=== PATIENT | female | born 1935 | race Caucasian/White ===

== ENCOUNTER → 2016-08-05 | Outpatient (CLI) | payer MEDICARE, BC ==
[~2016-08-05] MED LIST: ATOR80TA PO; CIPR500T3 PO; FOLI-17 PO; INSU100V5 SQ-INSULIN; LETR2.5T PO; LEVO50TA PO; LOSA50TA6 PO; METF500T4 PO; METH2.5T PO; METR500T PO; PRED5TAB25 PO; TERI2.4P SQ
[2016-08-05 13:07] LABS: HEMOGLOBIN 10.6 g/dL (11.7-16.4)
[2016-08-05 13:33] LABS: ASPARTATE AMINO TRANSFERASE 18 U/L (15-37); BLOOD UREA NITROGEN 20 mg/dL (7-18)
== END | disposition home or self-care (01) ==
LOC: CFH 07:47
PROVIDERS: ATTEND Nurse Practitioner
DX: E03.9 Hypothyroidism, unspecified (principal); E11.65 Type 2 diabetes mellitus with hyperglycemia; E55.9 Vitamin D deficiency, unspecified; M06.9 Rheumatoid arthritis, unspecified; R53.83 Other fatigue
CPT/HCPCS: 36415; 80053; 80061; 82306; 83036; 84443; 85025

== ENCOUNTER → 2017-01-11 | Outpatient (CLI) | payer MEDICARE, BC | END | disposition home or self-care (01) | LOC: CVU 11:27 | PROVIDERS: ATTEND Internal Medicine Cardiovascular Disease | DX: R60.0 Localized edema (principal) | CPT/HCPCS: 93306; 93970 ==

== ENCOUNTER 2017-04-22 11:22 | Inpatient (IN) | payer MEDICARE, BC ==
[~2017-04-22] VITALS: Ht 162.6 cm; Wt 85.8 kg
[2017-04-22] MEDS ORDERED: SODIUM CHLORIDE FLUSH 10ML SYR IVF ONE (12:00)
[2017-04-22 12:16] LABS: ASPARTATE AMINO TRANSFERASE 45 U/L (15-37); BLOOD UREA NITROGEN 26 mg/dL (7-18)
[2017-04-22] MEDS ORDERED: METO200T5 PO (12:27)
[2017-04-22] MEDS ORDERED: FURO20TA3 PO (12:27)
[2017-04-22] MEDS ORDERED: AMOX500T PO (12:27)
[2017-04-22 12:58] LABS: HEMATOCRIT 34.9 % (34.6-47.8); HEMOGLOBIN 10.8 g/dL (11.7-16.4); WHITE BLOOD COUNT 8.9 x10^3/uL (3.4-10)
[2017-04-22 13:13] LABS: ANISOCYTOSIS 1+; HYPOCHROMIA 1+; OVALOCYTES 1+; POIKILOCYTOSIS 1+
[2017-04-22] MEDS ORDERED: CEFTRIAXONE PMX 1GM/50ML 50 ML IV ONE (13:30)
[2017-04-22] MEDS ORDERED: SODIUM CHLORIDE 0.9% 1,000ML IVBOLUS ONE (13:30)
[2017-04-22] MEDS ORDERED: SODIUM CHLORIDE FLUSH 10ML SYR IVF PRN (14:30)
[2017-04-22] MEDS ORDERED: CEFTRIAXONE PMX 1GM/50ML 50 ML ONE (14:32)
[2017-04-22 16:27] VITALS: BP 111/72
[2017-04-22] MEDS ORDERED: METHOTREXATE 2.5 MG TABLET PO SCH (17:00)
[2017-04-22] MEDS ORDERED: SODIUM CHLORIDE 0.9% 1,000 ML IV SCH (17:04)
[2017-04-22] MEDS: INSULIN ASPART 100 UNITS/ML, PEN SQ-INSULIN SCH ×2 (17:30→20:36)
[2017-04-22] MEDS ORDERED: DEXTROSE 50%, 50ML SYRINGE IVPush PRN (17:30)
[2017-04-22] MEDS ORDERED: ONDANSETRON 2MG/ML, 2ML IVPush PRN (17:30)
[2017-04-22] MEDS ORDERED: POTASSIUM CHLORIDE 20 MEQ TAB.ER.PRT PO ONE (17:30)
[2017-04-22] MEDS ORDERED: BISACODYL 10 MG SUPP PR PRN (17:30)
[2017-04-22] MEDS ORDERED: POLYETHYLENE GLYCOL 17 GM PACKET PO PRN (17:30)
[2017-04-22] MEDS ORDERED: ACETAMINOPHEN 325 MG TABLET PO PRN (17:30)
[2017-04-22] MEDS ORDERED: PHARMACY MAY ADJ FOR RENAL FX MC PRN (17:30)
[2017-04-22] MEDS ORDERED: GLUCAGON 1 MG IM PRN (17:30)
[2017-04-22] MEDS ORDERED: DEXTROSE 4 GM TAB.CHEW PO PRN (17:30)
[2017-04-22] MEDS ORDERED: ONDANSETRON ODT 4 MG PO PRN (17:30)
[2017-04-22] MEDS: HEPARIN 5,000 UNITS/ML, 1ML SQ SCH (18:35)
[2017-04-22] MEDS: GUAIFENESIN 200 MG TABLET PO SCH ×2 (18:36→20:35)
[2017-04-22 18:50] VITALS: BP 107/61
[2017-04-22] MEDS: SODIUM CHLORIDE FLUSH 10ML SYR IVF SCH (20:35)
[2017-04-22] MEDS: SODIUM CHLORIDE NASAL SPRAY 45ML BOTTLE NAS SCH (21:28)
[2017-04-22] MEDS ORDERED: DIPHENHYDRAMINE 50 MG CAPSULE PO PRN (22:00)
[2017-04-22] MEDS: NYSTATIN/TRIAMCINOLONE CRM 15GM TP SCH (23:10)
[2017-04-23] MEDS: HEPARIN 5,000 UNITS/ML, 1ML SQ SCH ×3 (00:30→16:38)
[2017-04-23 02:43] VITALS: BP 105/58
[2017-04-23] MEDS: LEVOTHYROXINE 50 MCG TABLET PO SCH (05:48)
[2017-04-23] MEDS: GUAIFENESIN 200 MG TABLET PO SCH ×4 (05:48→21:18)
[2017-04-23 06:29] LABS: ASPARTATE AMINO TRANSFERASE 44 U/L (15-37); BLOOD UREA NITROGEN 22 mg/dL (7-18)
[2017-04-23 06:32] LABS: HEMATOCRIT 33.4 % (34.6-47.8); HEMOGLOBIN 10.3 g/dL (11.7-16.4); WHITE BLOOD COUNT 8.3 x10^3/uL (3.4-10)
[2017-04-23 06:59] VITALS: BP 119/65
[2017-04-23] MEDS: INSULIN ASPART 100 UNITS/ML, PEN SQ-INSULIN SCH ×4 (07:00→21:30)
[2017-04-23 07:20] LABS: ANISOCYTOSIS 2+; POIKILOCYTOSIS 1+; STOMATOCYTES 1+
[2017-04-23 07:21] LABS: HYPOCHROMIA 1+
[2017-04-23] MEDS ORDERED: MAGNESIUM SULFATE PMX 4GM/100M 100 ML IV ONE (08:30)
[2017-04-23] MEDS: PREDNISOLONE 5 MG PO SCH (09:00)
[2017-04-23] MEDS: SODIUM CHLORIDE NASAL SPRAY 45ML BOTTLE NAS SCH ×2 (09:00→21:18)
[2017-04-23] MEDS: FOLIC ACID 1 MG TABLET PO SCH (10:00)
[2017-04-23] MEDS: SODIUM CHLORIDE FLUSH 10ML SYR IVF SCH ×2 (10:01→21:18)
[2017-04-23] MEDS: NYSTATIN/TRIAMCINOLONE CRM 15GM TP SCH ×3 (10:01→21:18)
[2017-04-23] MEDS: SENNA/DOCUSATE TABLET PO SCH (10:01)
[2017-04-23 12:49] VITALS: BP 108/68
[2017-04-23 20:12] VITALS: BP 134/81
[2017-04-23] MEDS: ZOLPIDEM 5MG TABLET PO PRN (21:18)
[2017-04-24 00:26] VITALS: BP 115/81
[2017-04-24] MEDS: HEPARIN 5,000 UNITS/ML, 1ML SQ SCH ×3 (01:13→18:41)
[2017-04-24 05:14] LABS: ASPARTATE AMINO TRANSFERASE 35 U/L (15-37); BLOOD UREA NITROGEN 14 mg/dL (7-18)
[2017-04-24 05:27] LABS: HEMOGLOBIN 9.9 g/dL (11.7-16.4); WHITE BLOOD COUNT 6.6 x10^3/uL (3.4-10)
[2017-04-24] MEDS: GUAIFENESIN 200 MG TABLET PO SCH ×4 (05:30→20:12)
[2017-04-24] MEDS: LEVOTHYROXINE 50 MCG TABLET PO SCH (05:30)
[2017-04-24 06:52] LABS: ANISOCYTOSIS 2+
[2017-04-24 06:53] LABS: HYPOCHROMIA 1+; OVALOCYTES 1+; POIKILOCYTOSIS 1+
[2017-04-24 06:54] LABS: STOMATOCYTES 1+
[2017-04-24] MEDS: INSULIN ASPART 100 UNITS/ML, PEN SQ-INSULIN SCH ×4 (07:00→20:23)
[2017-04-24 07:36] VITALS: BP 111/71
[2017-04-24] MEDS: PREDNISOLONE 5 MG PO SCH (08:38)
[2017-04-24] MEDS: SODIUM CHLORIDE NASAL SPRAY 45ML BOTTLE NAS SCH ×2 (08:38→20:13)
[2017-04-24] MEDS: NYSTATIN/TRIAMCINOLONE CRM 15GM TP SCH ×3 (08:38→20:13)
[2017-04-24] MEDS: SODIUM CHLORIDE FLUSH 10ML SYR IVF SCH ×2 (08:39→20:13)
[2017-04-24] MEDS: SENNA/DOCUSATE TABLET PO SCH (08:39)
[2017-04-24] MEDS: FOLIC ACID 1 MG TABLET PO SCH (08:39)
[2017-04-24 12:12] VITALS: BP 120/77
[2017-04-24 19:21] VITALS: BP 124/66
[2017-04-24] MEDS: ZOLPIDEM 5MG TABLET PO PRN (20:12)
[2017-04-25 01:27] VITALS: BP 122/78
[2017-04-25] MEDS: HEPARIN 5,000 UNITS/ML, 1ML SQ SCH ×3 (01:30→17:51)
[2017-04-25] MEDS: GUAIFENESIN 200 MG TABLET PO SCH ×4 (05:22→20:57)
[2017-04-25] MEDS: LEVOTHYROXINE 50 MCG TABLET PO SCH (05:22)
[2017-04-25] MEDS: INSULIN ASPART 100 UNITS/ML, PEN SQ-INSULIN SCH ×4 (06:23→20:51)
[2017-04-25 06:55] VITALS: BP 137/84
[2017-04-25] MEDS ORDERED: PHARMACOKINETIC CONSULTATION MC ONE (08:00)
[2017-04-25] MEDS ORDERED: VANCOMYCIN PER PHARMACY MC PRN (08:00)
[2017-04-25] MEDS ORDERED: VANCOMYCIN 1,600 MG in SODIUM CHLORIDE 0.9% 250 ML IV SCH (08:00)
[2017-04-25] MEDS ORDERED: PHARMACOKINETIC MONITORING MC PRN (08:00)
[2017-04-25] MEDS: NYSTATIN/TRIAMCINOLONE CRM 15GM TP SCH ×3 (08:26→20:58)
[2017-04-25] MEDS: SODIUM CHLORIDE NASAL SPRAY 45ML BOTTLE NAS SCH ×2 (08:27→20:56)
[2017-04-25] MEDS: PREDNISOLONE 5 MG PO SCH (08:27)
[2017-04-25] MEDS: SODIUM CHLORIDE FLUSH 10ML SYR IVF SCH ×2 (08:27→20:58)
[2017-04-25] MEDS: FOLIC ACID 1 MG TABLET PO SCH (08:27)
[2017-04-25] MEDS: SENNA/DOCUSATE TABLET PO SCH (08:28)
[2017-04-25] MEDS: CEFDINIR 300 MG CAPSULE PO SCH ×2 (09:11→20:57)
[2017-04-25 14:45] VITALS: BP 112/75
[2017-04-25 19:12] VITALS: BP 118/80
[2017-04-25] MEDS: ZOLPIDEM 5MG TABLET PO PRN (20:57)
[2017-04-26 01:08] VITALS: BP 111/76
[2017-04-26] MEDS: HEPARIN 5,000 UNITS/ML, 1ML SQ SCH ×2 (01:09→08:55)
[2017-04-26] MEDS: GUAIFENESIN 200 MG TABLET PO SCH ×2 (05:54→11:00)
[2017-04-26] MEDS: LEVOTHYROXINE 50 MCG TABLET PO SCH (05:54)
[2017-04-26] MEDS: INSULIN ASPART 100 UNITS/ML, PEN SQ-INSULIN SCH ×2 (07:27→11:30)
[2017-04-26 08:47] VITALS: BP 114/59
[2017-04-26] MEDS: SENNA/DOCUSATE TABLET PO SCH (08:54)
[2017-04-26] MEDS: SODIUM CHLORIDE FLUSH 10ML SYR IVF SCH (08:54)
[2017-04-26] MEDS: CEFDINIR 300 MG CAPSULE PO SCH (08:54)
[2017-04-26] MEDS: SODIUM CHLORIDE NASAL SPRAY 45ML BOTTLE NAS SCH (08:54)
[2017-04-26] MEDS: FOLIC ACID 1 MG TABLET PO SCH (08:54)
[2017-04-26] MEDS: PREDNISOLONE 5 MG PO SCH (08:54)
[2017-04-26] MEDS: NYSTATIN/TRIAMCINOLONE CRM 15GM TP SCH (08:54)
[2017-04-26] MEDS ORDERED: CEFD300C37 PO (11:46)
[2017-04-26 13:40] VITALS: BP 116/73
== END 2017-04-26 16:00 | DRG 689 ==
LOC: ED 12:48 → EDIP 14:18 → 3NW 15:34
PROVIDERS: ADMIT Hospitalist; ATTEND Hospitalist
PROC: 0T9B70Z Drainage of Bladder with Drainage Device, Via Natural or Artificial Opening (ICD-10-PCS; principal; 2017-04-22)
DX: N30.00 Acute cystitis without hematuria (principal); N17.0 Acute kidney failure with tubular necrosis; D89.9 Disorder involving the immune mechanism, unspecified; E44.1 Mild protein-calorie malnutrition; E83.42 Hypomagnesemia; E66.01 Morbid (severe) obesity due to excess calories; E87.1 Hypo-osmolality and hyponatremia; J98.11 Atelectasis; D64.9 Anemia, unspecified; E03.9 Hypothyroidism, unspecified; E11.9 Type 2 diabetes mellitus without complications; E86.0 Dehydration; E87.6 Hypokalemia; G47.00 Insomnia, unspecified; I10 Essential (primary) hypertension; I87.2 Venous insufficiency (chronic) (peripheral); K04.7 Periapical abscess without sinus; M15.9 Polyosteoarthritis, unspecified; M35.3 Polymyalgia rheumatica; Z79.52 Long term (current) use of systemic steroids; Z79.84 Long term (current) use of oral hypoglycemic drugs; Z85.3 Personal history of malignant neoplasm of breast; Z92.3 Personal history of irradiation; Z90.49 Acquired absence of other specified parts of digestive tract; R33.9 Retention of urine, unspecified; Z68.32 Body mass index [BMI] 32.0-32.9, adult
CPT/HCPCS: 36415; 51702; 71010; 74176; 80053; 81001; 82010; 82140; 82550; 82962; 83605; 83690; 83735; 83880; 84100; 84145; 84443; 85025; 85610; 85730; 87040; 87077; 87086; 87186; 93005; 96360; 96361; J0696; J1644; J1815; J3370; J3475; J7030; J7050